=== PATIENT | female | born 1995 | race Two or more races ===

== ENCOUNTER 2025-01-06 08:56 | Outpatient (REF) | payer OTHER, SELFPAY ==
--- OUTSIDE RECORDS SUMMARY | 2025-01-06 09:03 | XMS_ITS | Clinical Summary ---
Author Organization [employer] Address [address] [facility] 7t [place] [address] Care Team Providers Care Food Safety Coordinator Name Role Phone Katelyn Mejia CNP Primary Care Provider [phone] [phone] Allergies Active Allergy Reactions Criticality Noted Date Comments Proanthocyanidin Angioedema 12/29/2024 grapes Medications EPINEPHrine (EpiPen 2-Isidoro) 0.3 MG/0.3ML injection syringe Inject 0.3 mg into the muscle. 06/17/19 22 Active budesonide-for moterol (Symbicort) 160-4.5 MCG/ACT inhalerIndicat ions:Mild persistent asthma, unspecified whether complicated Inhale 2 puffs in the morning and at bedtime. Rinse mouth with water after use to reduce aftertaste and incidence of candidiasis. Do not swallow. 10.2 g 11 12/30/19 25 025 Active albuterol 108 (90 Base) MCG/ACT inhalerIndicat ions:Mild persistent asthma, unspecified whether complicated Inhale 2 puffs every 4 (four) hours if needed for wheezing. 18 g 12/30/19 25 026 Active Albuterol-Minong sonide 90-80 MCG/ACT aerosol 025 Discontinued budesonide-for moterol (Symbicort) 160-4.5 MCG/ACT inhaler 025 Discontinued(Re order (will not trigger notification to Pharmacy)) Active Problems Problem Noted Date Diagnosed Date Class 1 obesity 12/29/2024 Encounters Date Type Department Care Team Description 01/02/2025 Telephone [facility] [address] [place], [place] [id number] Katelyn Mejia CNP chart prep 12/29/2024 1:15 PM EDT Office Visit [facility]ED[facility] [address] [place] [address] Katelyn Mejia CNP Encounter to establish care (Primary Dx); Mild persistent asthma, unspecified whether complicated; Encounter for allergy testing; Pain in both wrists; Pelvic pain; History of ovarian cyst; Venous insufficiency; Pilar cyst of scalp 12/29/2024 Travel 12/29/2024 Telephone [facility] & PED[facility] [address] [place] [address] Gisele Alcantar DE chart prep 12/28/2024 Travel 12/05/2024 Telephone [facility] [address] [place] [address] Anthony Mar MD 11/17/2024 Telephone [facility] [address] [place] [address] Anthony Mar MD from Last 3 Months Immunizations Immunization Administration Dates Next Due DTP 05/20/1999, 6,1994,09/03,1994 HPV, Quadrivalent 02/07/2015, 5,11/11/2009,09/21 Hep B, Unspecified 1994,1994, 995 HiB, unspecified 11/29/1995, 5,1994,07/01 IPV 05/20/1999, 5,1994,07/01 Influenza, IIV3, injectable 03/22/2018,0 01/20/2017,01/25/2016,02/07,04/21/2006 Influenza, seasonal, injecta ble, preservative free 01/20/2019 MMR 05/20/1999,08/18/1995 Meningococcal ACWY, unspecified 08/02/2014,09/21 Tdap 10/14/2015,04/21/2006 Varicella 09/22/2007,09/01/1995 Family History Medical History Relation Name Comments Asthma Father Jin Diabetes Father Jin Kidney disease Father Jin Liver disease Father Jin Stroke Father Jin Anemia Mother Thyroid disease Mother Asthma Sister Delia Relation Name Status Comments Father Jin Alive Mother Sister Delia Alive Social History Tobacco Use Types Packs/Day Years Used Date Smoking Tobacco: Never Smokeless Tobacco: Never Tobacco Cessation:Counseling Given: Not Answered Alcohol Use Standard Drinks/Week Comments Not Currently 0 (1 standard drink = 0.6 oz pur e alcohol) Maybe 1-2 a month Depression Answer Date Recorded Patient Health Questionnaire-9 Score 14 12/29/2024 Patient Health Questionnaire-9 Score 14 12/29/2024 Last PHQ-9: Questionnaire Data Not on file 0 12/29/2024 Housing Stability Answer Date Recorded What is your housing situation today? I have sabiha bradley 12/29/[address] you li ve. Do you have problems with any of the following? None of the above 12/29/2024 Food Insecurity Answer Date Recorded Within the past 12 months, y ou worried that your food would run out before you got money to buy more: Never True 12/29/2024 Within the past 12 months,th e food you bought just didn't last and you didn't have enough money to get more: Never True Transportation Answer Date Recorded In the past 12 months, has l ack of transportation kept you from medical appts, meetings, work or from getting things needed for daily living? No 12/29/2024 Utilities Answer Date Recorded In the past 12 months, has t he electric, gas, oil or water company threatened to shut off services in your home? No 12/29/2024 Depression Answer Date Recorded Patient Health Questionnaire-2 Score 3 12/29/2024 Internet Access Answer Date Recorded Internet Access Q1 Yes 12/29/2024 Internet Access Q2 Not on file 12/29/2024 Comments Unknown Sex and Gender Information Value Date Recorded Sex Assigned at Female 12/28/2024 2:41 PM EDT Legal Sex Female 9:26 AM EDT Gender Identity Female 12/28/2024 2:41 PM EDT Sexual Orientation Straight 01/02/2025 3: 08 PM EDT Last Filed Vital Signs Vital Sign Reading Time Taken Comments Blood Pressure 104/62 12/29/2024 1:28 PM EDT Pulse 72 12/29/2024 1:28 PM EDT Temperature 36.9 C (98.4 F) 12/29/2024 1:28 PM EDT Respiratory Rate 16 12/29/2024 1:28 PM EDT Oxygen Saturation 98% 12/29/2024 1:28 PM EDT Inhaled Oxygen Concentration - - Weight 64.4 kg (142 lb) 12/29/2024 1:28 PM EDT Height 153.7 cm (5' 0.5 ) 12/29/2024 1:28 PM EDT Body Mass Index 27.28 12/29/2024 1:28 PM EDT Plan of Treatment Upcoming Encounters Date Type Department Care Team (Late st Contact Info) Description 01/11/2025 11:30 AM EDT Procedure Visit [facility] MED & PEDS [address] [place], [place] [phone] Katelyn Mejia, SPRING MAKER [address] [place], [place] [phone] Health Maintenance Due Date Last Done Comments Family Planning (PISQ) 2009 Pneumococcal Vaccine: Pediatrics (0 to 5 Years) and At-Risk Patients (6 to 49) Years (1 of 2 - PCV) 2013 Pap Smear 2015 Cervical Cancer Screening 2024 HPV/Cotest 2024 COVID-19 Vaccine ( - season) 2025 Influenza Vaccine (#1) 2025 9, 03/22/2018, 01/20/2017, Additional history exists Depression Monitoring 06/30/2025 12/29/2024, 025 DTaP/Tdap/Td Vaccines (8 - Td or Tdap) 10/13/2025 10/14/2015, 04/21/2006, 05/20/1999, Additional history exists Alcohol/Substance Use Screening 12/29/2025 12/29/2024 Disability Screening 12/29/2025 12/29/2024 HIV Screening 12/29/2025 Postponed from 1994 (Patient Refused) Hepatitis C Screening 12/29/2025 Postpo amanda from 2012 (Patient Refused) SDOH Screening 12/29/2025 12/29/2024 Tobacco Screening 12/29/2025 12/29/2024 Zoster Vaccines (1 of 2) 2044 RSV Patients and Patients Aged 60 years or older (1 - 1-dose 75+ series) 2069 Hepatitis B Vaccines Completed 1994, 1994, 1994 HIB Vaccines Completed 11/29/1995, 10/31, 1994, Additional history exists IPV Vaccines Completed 05/20/1999, 10/31, 1994, Additional history exists Meningococcal Vaccine Aged Out 08/02/2014, 008 No longer eligible based on patient's age to complete this topic HPV Vaccines Completed 02/07/2015, 06/2014, 11/11/2009, Additional history exists Hepatitis A Vaccines Aged Out No long er eligible based on patient's age to complete this topic Meningococcal B Vaccine Aged Out No l onger eligible based on patient's age to complete this topic RSV under 20 months Aged Out No longe r eligible based on patient's age to complete this topic Rotavirus Vaccines Aged Out No longer eligible based on patient's age to complete this topic Insurance [facility] 2 Care Teams Food Safety Coordinator Relationship Specialty Start Date End Date Katelyn Mejia CNP [address] [place] [id number] PCP - General Family Medicine 12/29/24
--- OUTSIDE RECORDS SUMMARY | 2025-01-06 09:03 | XMS_ITS | Clinical Summary ---
Author Organization [facility] Address [address] [place] [address] Care Team Providers Care Plasticator Name Role Phone Unavailable Primary Care Provider Unavailabl e Social History Tobacco Use Types Packs/Day Years Used Date Smoking Tobacco: Never Assessed Comments Unknown Sex and Gender Information Value Date Recorded Sex Assigned at Not on file Legal Sex Female 5:47 AM EST Gender Identity Not on file Sexual Orientation Not on file Plan of Treatment Health Maintenance Due Date Last Done Comments DTaP,Tdap,and Td Vaccines (1 - Tdap) 2013 Hepatitis B Vaccines (1 of 3 - 19+ 3-dose series) 2013 Cervical Cancer Screening: P ap Smear 2015 Depression Screening 05/03/2024 COVID-19 Vaccine ( - 2023-2 5 season) 2025 Influenza Vaccine (#1) 2025 HIB Vaccines Aged Out No longer eligi ble based on patient's age to complete this topic HPV Vaccines Aged Out No longer eligi ble based on patient's age to complete this topic Hepatitis A Vaccines Aged Out No long er eligible based on patient's age to complete this topic IPV Vaccines Aged Out No longer eligi ble based on patient's age to complete this topic MMR Vaccines Aged Out No longer eligi ble based on patient's age to complete this topic Meningococcal ACWY Vaccine Aged Out N o longer eligible based on patient's age to complete this topic Meningococcal B Vaccine Aged Out No l onger eligible based on patient's age to complete this topic Pneumococcal Vaccine: Pediat rics (0 to 5 Years) and At-Risk Patients (6 to 49 Years) Aged Out No longer eligible b ased on patient's age to complete this topic RSV Immunization Patients Un luis 20 months Aged Out No longer eligible b ased on patient's age to complete this topic Varicella Vaccines Aged Out No longer eligible based on patient's age to complete this topic
--- OUTSIDE RECORDS SUMMARY | 2025-01-06 09:03 | XMS_ITS | Encounter Summary ---
Author Organization [employer] Address [address] [facility] 7 [place] [address] Care Team Providers Care Communications Coordinator Name Role Phone Katelyn Mejia CNP Primary Care Provider [phone] Reason for Visit * Reason Onset Date Comments chart prep 01/02/2025 Encounter Details Date Type Department Care Team ([facility] st Contact Info) Description 01/02/2025 Telephone [facility] MED & PEDS [address] [place], [place] [phone] Katelyn Mejia CNP [address] [place] [address] chart prep Social History Tobacco Use Types Packs/Day Years Used Date Smoking Tobacco: Never Smokeless Tobacco: Never Alcohol Use Standard Drinks/Week Comments Not Currently [...] Orientation Straight 01/02/2025 3: 08 PM EDT documented as of this encounter Miscellaneous Notes * Telephone Encounter - Gisele Alcantar [place] - 01/02/2025 2:20 PM EDT Chart Prep Labs: waiting Images: pending appointment Referrals: appointment pending Vaccines due: Flu and PCV20 Screenings: pap smear Overdue care gaps: Not applicable documented in this encounter Plan of Treatment Upcoming Encounters Date Type Department Care Team (Late st Contact Info) Description 01/11/2025 11:30 AM EDT Procedure Visit [facility] P[facility] [address] [place] [address] Katelyn Mejia CNP [address] [place] [address] documented as of this encounter Visit Diagnoses Not on filedocumented in this encounter Additional Health Concerns Assessment Noted Time PHQ-9 Depression Total Score: 14 025 2:12 PM EDT documented as of this encounter Care Teams Communications Coordinator Relationship Specialty Start Date End Date Katelyn Mejia CNP [address] [place] [address] PCP - General Family Medicine 12/29/24 documented as of this encounter
[2025-01-06 09:15] LABS: MANUAL DIFF FLAG NO
[2025-01-06 11:27] LABS: Hematocrit 38.5 % (37.0-47.0); Hemoglobin 12.9 g/dl (12.0-16.0); Imm Gran Abs Auto 0.01 X10*3/uL (0.00-0.03); Imm Gran Pct Auto 0.2 % (0.0-0.4); Lymphocytes Absolute Auto 1.2 X10*3/uL (1.2-4.9); Mean Corpuscular HGB Conc 33.5 g/dl (31.0-35.0); Mean Corpuscular Hemoglobin 29.3 pg (27.0-33.0); Mean Corpuscular Volume 87.5 fL (80.0-98.0); NRBC Abs Auto 0.000 X10*3/uL (0.0-0.012); NRBC Pct Auto 0.0 /100WBC (0.0-0.2); Platelet Count 264 X10*3/uL (160-400); Red Blood Count 4.40 X10*6/uL (4.20-5.50); White Blood Count 4.2 X10*3/uL (4.8-10.8)
[2025-01-06 12:28] LABS: Alanine Aminotransferase 22 U/L (0-31); Albumin Level 4.3 g/dL (3.5-5.0); Alkaline Phosphatase 100 U/L (39-117); Anion Gap 11 (12-20); Aspartate Amino Transferase 26 U/L (5-31); Blood Urea Nitrogen 11 mg/dL (9-16); Calcium 9.1 mg/dL (8.4-10.2); Carbon Dioxide 26 mmol/L (22-29); Chloride 108 mmol/L (96-108); Cholesterol 144 mg/dL (<200); Estimated Glomerular Filt Rate > 60; HDL Cholesterol 46 mg/dL (>40); Potassium 4.0 mmol/L (3.3-5.1); Sodium 141 mmol/L (135-145); Total Protein 6.9 g/dL (6.5-8.0); Triglycerides 40 mg/dL (<150)
== END 2025-01-06 08:57 | disposition home or self-care (01) ==
LOC: HO.LAB 08:56
DX: Z76.89 Persons encountering health services in other specified circumstances (principal)
CPT/HCPCS: 36415; 80053; 80061; 84443; 85025

== ENCOUNTER 2025-01-11 18:08 | Outpatient (REF) | payer OTHER, SELFPAY ==
--- OUTSIDE RECORDS SUMMARY | 2025-01-11 11:30 | XMS_ITS | Encounter Summary ---
Author Organization [employer] Address [address] [place] [address] 7 [place] [address] Care Team Providers Care Meat Cutter Name Role Phone Katelyn Mejia CNP Primary Care Provider [phone] [phone] Reason for Visit * Reason Comments Gynecologic Exam Encounter Details Date Type Department Care Team (Latest Contact Info) Description 01/11/2025 11:30 AM EDT Procedure Visit [facility] MED & PEDS [address] [place], [place] [phone] Katelyn Mejia CNP [address] [place] [address] Encounter for cervical Pap smear with pelvic exam (Primary Dx); Healthcare maintenance Social History Tobacco Use Types Packs/Day Years [...] Q2 Not on file 12/29/2024 Comments Unknown Intention Date Recorded No desire to become (finding) 0 01/11/2025 Sex and Gender Information Value Date Recorded Sex Assigned at Female 12/28/2024 2:41 PM EDT Legal Sex Female 9:26 AM EDT Gender Identity Female 12/28/2024 2:41 PM EDT Sexual Orientation Straight 01/02/2025 3: 08 PM EDT documented as of this encounter Last Filed Vital Signs Vital Sign Reading Time Taken Comments Blood Pressure 100/64 01/11/2025 11:39 AM EDT Pulse 76 01/11/2025 11:39 AM EDT Temperature 36.2 C (97.1 F) 01/11/2025 11:39 AM EDT Respiratory Rate 16 01/11/2025 11:39 AM EDT Oxygen Saturation 98% 01/11/2025 11:39 AM EDT Inhaled Oxygen Concentration - - Weight 66.2 kg (146 lb) 01/11/2025 11:39 AM EDT Height 153.7 cm (5' 0.5 ) 01/11/2025 11:39 AM ED T Body Mass Index 28.04 01/11/2025 11:39 AM EDT documented in this encounter Progress Notes * Katelyn Mejia CNP - 01/11/2025 11:30 AM EDT Subjective Patient ID: Mery Taylor is a 29 y.o. female who presents for routine [employer] exam. She denies any urinary, vaginal, or breast concerns today. Hx of ovarian cysts, pelvic US pending. Last pap 07/2022, LSIL HPV Neg, per pt she had colpo, unsure of results. Periods regular occurring every month, 5-6 days, moderate bleeding Sexual activity: has monogamous AMAB partner, would lik gc/ct testing today Contraception: none Review of Systems Genitourinary: Negative for pelvic pain and vaginal discharge. Objective Vitals: 01/11/25 1139 BP: 100/64 Pulse: 76 Resp: 16 Temp: 97.1 ??F (36.2 ??C) SpO2: 98% Physical Exam Constitutional: Appearance: Normal appearance. HENT: Head: Normocephalic and atraumatic. Chest: Comments: Breast exam declined Genitourinary: General: Normal vulva. Labia: Right: No rash, tenderness, lesion or injury. Left: No rash, tenderness, lesion or injury. Urethra: No prolapse, urethral pain, urethral swelling or urethral lesion. Vagina: Normal. Cervix: Normal. No cervical motion tenderness, discharge, friability, lesion, erythema, cervical bleeding or eversion. Uterus: Normal. Not deviated, not enlarged, not fixed, not tender and no uterine prolapse. Adnexa: Right adnexa normal and left adnexa normal. Right: No mass, tenderness or fullness. Left: No mass, tenderness or fullness. Rectum: Normal. Neurological: General: No focal deficit present. Mental Status: She is alert and oriented to person, place, and time. Psychiatric: Mood and Affect: Mood normal. Behavior: Behavior normal. Assessment/Plan Problem List Items Addressed This Visit None Visit Diagnoses Encounter for cervical Pap smear with pelvic exam - Primary Relevant Orders Pap Smear Hemoglobin A1c STI testing add on (NG, CT, Trich) Normal pelvic and speculum exam today, pap obtained with STI add on. If normal, repeat in 1 year. Pt to f/u to have pelvic US completed for hx of ovarian cysts. documented in this encounter Plan of Treatment Scheduled Orders Name Type Priority Associated Diagnoses Orde r Schedule Pap Smear Pathology and Cytology Routine Encounter for cervical Pap smear with pelvic exam Ordered: 01/11/2025 Hemoglobin A1c Lab Routine Encounter for cervical Pap smear with pelvic exam Healthcare maintenance Expected: 01/11/2025 (Approximate), Expires: 01/11/2026 STI testing add on (NG, CT, Trich) Pathology and Cytology Routine Encounter for cervical Pap smear with pelvic exam Ordered: 01/11/2025 documented as of this encounter Visit Diagnoses Diagnosis Encounter for cervical Pap smear with pelvic exam- Primary Healthcare maintenance documented in this encounter Additional Health Concerns Assessment Noted Time PHQ-9 Depression Total Score: 14 025 2:12 PM EDT documented as of this encounter Care Teams Meat Cutter Relationship Specialty Start Date End Date Katelyn Mejia CNP [address] [place] [address] PCP - General Family Medicine 12/29/24 documented as of this encounter
--- OUTSIDE RECORDS SUMMARY | 2025-01-11 19:03 | XMS_ITS | Encounter Summary ---
Author Organization [employer] Address [address] [facility] [address] [place] [address] Care Team Providers Care Prevention Specialist Name Role Phone Katelyn Mejia MATILDE Primary Care Provider [phone] [phone] Encounter Details Date Type Department Care Team (Latest Contact Info) Description 01/11/2025 Travel Social History Tobacco Use Types Packs/Day Years [...] PM EDT documented as of this encounter Plan of Treatment Not on file documented as of this encounter Visit Diagnoses Not on filedocumented in this encounter Additional Health Concerns Assessment Noted Time PHQ-9 Depression Total Score: 14 025 2:12 PM EDT documented as of this encounter Care Teams Prevention Specialist Relationship Specialty Start Date End Date Katelyn Mejia CNP [address] [place] [id number] PCP - General Family Medicine 12/29/24 documented as of this encounter
--- OUTSIDE RECORDS SUMMARY | 2025-01-11 19:03 | XMS_ITS | Clinical Summary ---
Author Organization [employer] Address [address] [facility] [address] [place] [address] Care Team Providers Care Cloth Weaver Name Role Phone Katelyn Mejia MATILDE Primary Care Provider [phone] Allergies Active Allergy Reactions Criticality Noted Date Comments Proanthocyanidin Angioedema 12/29/2024 grapes Medications * This document contains information received from the source organization and may not represent a complete record from that organization. EPINEPHrine (EpiPen 2-Isidoro) 0.3 MG/0.3ML injection syringe [...] wheezing. 18 g 12/30/19 25 026 Active Albuterol-[place] sonide 90-80 MCG/ACT aerosol 025 Discontinued budesonide-for moterol (Symbicort) 160-4.5 MCG/ACT inhaler 025 Discontinued(Re order (will not trigger notification to Pharmacy)) Active Problems Problem Noted Date Diagnosed Date Class 1 obesity 12/29/2024 Encounters * This document contains information received from the source organization and may not represent a complete record from that organization. Date Type Department Care Team Description 01/11/2025 11:30 AM EDT Procedure Visit [facility] [address] [place] [address] Katelyn Mejia CNP Encounter for cervical Pap smear with pelvic exam (Primary Dx); Healthcare maintenance 01/11/2025 Orders Only [facility] [address] [place] [address] ProviderDarrell MD 01/11/2025 Travel 01/02/2025 Telephone [facility] [address] [place] [address] Katelyn Mejia CNP chart prep 12/29/2024 1:15 PM EDT Office Visit [facility] [address] [place] [address] Katelyn Mejia CNP Encounter to establish care (Primary Dx); Mild persistent asthma, unspecified whether complicated; Encounter for allergy testing; Pain in both wrists; Pelvic pain; History of ovarian cyst; Venous insufficiency; Pilar cyst of scalp 12/29/2024 Travel 12/29/2024 Telephone [facility] [address] [place] [address] Gisele Alcantar MA chart prep 12/28/2024 Travel 12/05/[address] [facility] [address] [place] [phone] Anthony Mar MD 11/17/[address] [facility] [address] [place] [phone] Anthony Mar MD from Last 3 Months [...] Mass Index 28.04 01/11/2025 11:39 AM EDT Plan of Treatment Health Maintenance Due Date Last Done Comments Pneumococcal Vaccine: Pediatrics (0 to 5 Years) and At-Risk Patients (6 to 49) Years (1 of 2 - PCV) 2013 Pap Smear 2015 Cervical Cancer Screening 2024 HPV/Cotest 2024 COVID-19 Vaccine ( season) 2025 Influenza Vaccine (#1) 2025 9, [...] Screening 12/29/2025 12/29/2024 Tobacco Screening 12/29/2025 12/29/2024 Family Planning (PISQ) 01/11/2026 01/11/2025 Zoster Vaccines (1 of 2) 2044 RSV [...] on patient's age to complete this topic Procedures Procedure Name Priority Date/Time Associated Diagnosis Comments CBC WITH AUTO DIFFERENTIAL Routine 01/06/2025 9:13 AM EDT Encounter to establish care COMPREHENSIVE METABOLIC PANEL Routine 01/06/2025 9:13 AM EDT Encounter to establish care TSH W/REFLEX TO FT4 Routine 01/06/2025 9 :13 AM EDT Encounter to establish care LIPID PANEL, STANDARD Routine 01/06/2025 9:13 AM EDT Encounter to establish care from Last 3 Months Results * TSH W/Reflex to FT4 (01/06/2025 9:13 AM EDT) Pathologist [facility] TSH reflex Free T4 0.88 0.32 - 4.0 uIU/mL [facility] Blood Venous blood specimen / Unknown 01/06/2025 9:13 AM EDT 01/06/2025 9:13 AM EDT [facility] LAB BLOOD ORDERABLES Madelaine l Result [facility] [address] [place] [address] [phone] * (ABNORMAL) CBC auto differential (01/06/2025 9:13 AM EDT) [facility] White Blood Count 4.2(L) 4.8 - 10.8 X10*3/uL [facility] Red Blood Count 4.40 4.20 - 5.50 X10*6/uL [facility] Hemoglobin 12.9 12.0 - 16.0 g/dl [facility] Hematocrit 38.5 37.0 - 47.0 % [facility] Mean Corpuscular Volume 87.5 80.0 - 98.0 fL [facility] Mean Corpuscular Hemoglobin 29.3 27.0 - 33.0 pg [facility] Mean Corpuscular HGB Conc 33.5 31.0 - 35.0 g/dl [facility] Red Cell Distribution Width 12.5 11.0 - 16.0 % [facility] Platelet Count 264 160 - 400 X10*3/uL [facility] Mean Platelet Volume 10.9 9.4 - 12.3 fL [facility] Neutrophils Percent Auto 57.8 45 - 73 % [facility] Imm Gran Pct Auto 0.2 0.0 - 0.4 % [facility] Lymphocytes Percent Auto 28.8 20 - 40 % [facility] Monocytes Percent Auto 7.7 2 - 11 % [facility] Eosinophils Percent Auto 4.8(H) 0 - 4 % [facility] Basophils Percent Auto 0.7 0 - 2 % [facility] NRBC Pct Auto 0.0 0.0 - 0.2 /100WBC [facility] Neutrophils Absolute Auto 2.4 2.0 - 8.3 x10*3/uL [facility] Imm Gran Abs Auto 0.01 0.00 - 0.03 X10*3/uL [facility] Lymphocytes Absolute Auto 1.2 1.2 - 4.9 X10*3/uL [facility] Monocytes Absolute Auto 0.3 0.1 - 1.2 X10*3/uL [facility] Eosinophils Absolute Auto 0.2 0.0 - 0.4 X10*3/uL [facility] Basophils Absolute Auto 0.0 0.0 - 0.2 X10*3/uL [facility] NRBC Abs Auto 0.000 0.0 - 0.012 X10*3/uL [facility] Blood Venous blood specimen / Unknown 01/06/2025 9:13 AM EDT 01/06/2025 9:13 AM EDT [facility] LAB BLOOD ORDERABLES Madelaine l Result [facility] [address] [place] [phone] * Lipid Panel, Standard (01/06/2025 9:13 AM EDT) Triglycerides 40 <150 mg/dL [facility] Comment:Desirable Triglyceri de: less than 150 mg/dLBorderline High Triglyceride 150-199 mg/dLHigh Triglyceride: 200-499 mg/dLVery High Triglyceride: greater than or equal to 5OO mg/dL Cholesterol 144 <200 mg/dL [facility] Comment:Desirable Cholestero l: less than 200 mg/dLBorderline High Cholesterol: 200-239 mg/dLHigh Cholesterol: greater than 239 mg/dL LDL Cholesterol Calculated 90 <100 mg/dL [facility] Comment:Desirable LDL: less than 100 mg/dLNear Optimal/Above Optimal LDL: 110- 129 mg/dLBorderline High LDL: 130-159 mg/dLHigh LDL: 160-189 mg/dLVery High LDL: greater than or equal to 190 mg/dL HDL Cholesterol 46 >40 mg/dL [facility] Comment:Desirable HDL: great er than 40 mg/dL Note: This HDL assay may give artificially low results in patients with liver disease. Blood Venous blood specimen / Unknown 01/06/2025 9:13 AM EDT 01/06/2025 9:13 AM EDT [facility] LAB BLOOD ORDERABLES Madelaine l Result [facility] [address] [place], [place] [phone] * (ABNORMAL) Comprehensive Metabolic Panel (01/06/2025 9:13 AM EDT) Sodium 141 135 - 145 mmol/L [facility] Potassium 4.0 3.3 - 5.1 mmol/L [facility] Chloride 108 96 - 108 mmol/L [facility] Carbon Dioxide 26 22 - 29 mmol/L [facility] Anion Gap 11(L) 12 - 20 [facility] Urea Nitrogen (BUN) 11 9 - 16 mg/dL [facility] Creatinine, Serum 0.79 0.5 - 1.4 mg/dL [facility] Estimated Glomerular Filt Rate >60 [facility] Comment:Chronic Kidney Disea se: Estimated GFR < 60 mL/min/[id number] Kidney Disease: Estimated GFR < 15 mL/min/1.73m2 Glucose 80 60 - 115 mg/dL [facility] Calcium 9.1 8.4 - 10.2 mg/dL [facility] Bilirubin, Total 0.5 0.0 - 1.0 mg/dL [facility] Aspartate Amino Transferase 26 5 - 31 U/L [facility] Alanine Aminotransferase 22 0 - 31 U/L [facility] Total Protein 6.9 6.5 - 8.0 g/dL [facility] Albumin Level 4.3 3.5 - 5.0 g/dL [facility] Alkaline Phosphatase 100 39 - 117 U/L [facility] Blood Venous blood specimen / Unknown 01/06/2025 9:13 AM EDT 01/06/2025 9:13 AM EDT us Katelyn Mejia [employer] LAB BLOOD ORDERABLES Madelaine l Result [facility] [address] [place] [phone] from Last 3 Months Insurance [facility] 2 Care Teams Cloth Weaver Relationship Specialty Start Date End Date Katelyn Mejia CNP [address] [place] [address] PCP - General Family Medicine 12/29/24
--- OUTSIDE RECORDS SUMMARY | 2025-01-11 19:03 | XMS_ITS | Encounter Summary ---
Author Organization [employer] Address [address] [facility] [address] [place] [address] Care Team Providers Care Nut Sorter Name Role Phone RobertoUlysseslarisaadrian MATILDE Primary Care Provider [phone] Encounter Details Date Type Department Care Team ([facility] st Contact Info) Description 01/11/2025 Orders Only [facility] [address] [place], [place] [phone] ProviderDarrell MD Social History Tobacco Use Types Packs/Day Years [...] is your housing situation today? I have sabihanela bradley 12/29/[address] you [...] the past 12 months, has t he [employer], gas, oil or water company threatened to [...] on file documented as of this encounter Procedures Procedure Name Priority Date/Time Associated Diagnosis Comments CYTOLOGY, CONVENTIONAL PAP SMEAR, 1 SLIDE Routine 07/20/2022 3:31 PM EDT documented in this encounter Results * Cytology, Conventional Pap Smear, 1 Slide (07/20/2022 3:31 PM EDT) us Historical Provider LAB CYTOLOGY ORDERABLES F inal Result documented in this encounter Visit Diagnoses Not on filedocumented in this encounter Additional Health Concerns Assessment Noted Time PHQ-9 Depression Total Score: 14 025 2:12 PM EDT documented as of this encounter Care Teams Nut Sorter Relationship Specialty Start Date End Date Katelyn Mejia CNP [address] [place] [phone] PCP - General Family Medicine 12/29/24 documented as of this encounter
[2025-01-14 17:32] LABS: Trichomonas (NAAT) NOT DETECTED (NOT DETECTED)
[2025-01-14 17:43] LABS: C. trachomatis RNA TMA NOT DETECTED (NOT DETECTED); N. gonorrhoeae RNA TMA NOT DETECTED (NOT DETECTED)
== END 2025-01-11 18:09 | disposition home or self-care (01) ==
LOC: HO.HHCLNP 18:08
DX: Z01.419 Encounter for gynecological examination (general) (routine) without abnormal findings (principal)
CPT/HCPCS: 87491; 87591; 87661; 88175

== ENCOUNTER 2025-02-13 08:54 | Outpatient (REF) | payer OTHER, SELFPAY ==
--- NOTE | 2025-02-13 | EMG_ITS ---
Chief complaint: Pain in both wrist Reason for referral: M25.531 Evaluate for Carpal tunnel syndrome, ulnar neuropathy, radiculopathy Referred by: Katelyn Mejia CNP Procedure done: Bilateral upper extremity NCS / EMG Bilateral median and ulnar motor studies were performed. Bilateral median and ulnar mixed sensory studies, radial sensory, and median lateral antecubital brachial sensory studies were performed. EMG needle examination was performed. Left ulnar motor studies revealed slowing of conduction velocity across elbow. Left radial sensory response was absent. Impression: 1. Mild left ulnar neuropathy across elbow 2. Left radial sensory neuropathy. Otherwise no significant abnormality noted. MTDD
--- OUTSIDE RECORDS SUMMARY | 2025-02-13 09:25 | XMS_ITS | Clinical Summary ---
Author Organization [employer] [facility] it[facility] Address [address] [place] [address] Care Team Providers Care Utility Mechanic Name Role Phone Unavailable Primary Care Provider [...] Cervical Cancer Screening: P ap Smear 2015 HPV Vaccines (1 - 3-dose SCD M series) 2021 Depression Screening 05/03/2024 COVID-19 Vaccine ( - 2023-2 5 season) 2025 Influenza Vaccine (#1) 2025 RSV Immunization Adult Patie nts (1 - 1-dose 75+ series) 2069 HIB Vaccines Aged Out No longer eligi [...]
--- OUTSIDE RECORDS SUMMARY | 2025-02-13 09:25 | XMS_ITS | Clinical Summary ---
Author Organization [employer] Address [address] [facility] [address] [place] [address] Care Team Providers Care Liver Trimmer Name Role Phone Katelyn Mejia MATILDE Primary Care Provider [phone] Allergies Active Allergy Reactions Criticality Noted Date Comments Proanthocyanidin Angioedema 12/29/2024 grapes Medications * This document contains information received from the source organization and may not represent a complete record from that organization. EPINEPHrine (EpiPen 2-Isidoro) 0.3 MG/0.3ML injection syringe Inject 0.3 mg into the muscle. 2 Active budesonide-formo terol (Symbicort) 160-4.5 MCG/ACT inhalerIndicatio ns:Mild persistent asthma, unspecified whether complicated Inhale 2 puffs in the morning and at bedtime. Rinse mouth with water after use to reduce aftertaste and incidence of candidiasis. Do not swallow. 10.2 g 11 5 Active albuterol 108 (90 Base) MCG/ACT inhalerIndicatio ns:Mild persistent asthma, unspecified whether complicated Inhale 2 puffs every 4 (four) hours if needed for wheezing. 18 g 5 12/30/19 26 Active Active Problems Problem Noted Date Diagnosed Date Use of cannabinoid edibles 01/22/2025 Depression, unspecified 01/15/2025 NITA (generalized anxiety disorder) 01/15/2025 Class 1 obesity 12/29/2024 Encounters * This document contains information received from the source organization and may not represent a complete record from that organization. Date Type Department Care Team Description 01/17/2025 Results Follow-Up [facility] [address] [place], [place] [address] [phone] Katelyn Mejia CNP Pap Smear, STI testing add on (NG, CT, Trich) 01/11/2025 11:30 AM EDT Procedure Visit [facility] [address] [facility] [place] [facility] [place] [address] Katelyn Mejia CNP Encounter for cervical Pap smear with pelvic exam (Primary Dx); Healthcare maintenance 01/11/2025 Orders Only [facility] [address] [place] [address] ProviderDarrell MD 01/11/2025 Travel 01/02/2025 Telephone [facility] [address] [place] [address] Katelyn Mejia CNP chart prep 12/29/2024 1:15 PM EDT Office Visit [facility] [address] [place] [address] Katelyn Mejia CNP Encounter to establish care (Primary Dx); Mild persistent asthma, unspecified whether complicated; Encounter for allergy testing; Pain in both wrists; Pelvic pain; History of ovarian cyst; Venous insufficiency; Pilar cyst of scalp 12/29/2024 Travel 12/29/2024 Telephone [facility] [address] [place] [address] Gisele Alcantar MA chart prep 12/28/2024 Travel 12/05/[address] [address] Anthony Mar MD 11/17/2024 Telephone [facility] MED[facility] [address] [place] [phone] Anthony Mar MD from Last 3 Months [...] Answer Date Recorded Patient Health Questionnaire-9 Score 6 01/11/2025 Patient Health Questionnaire-9 Score 6 01/11/2025 Last PHQ-9: Questionnaire Data Not on file 0 01/11/2025 Housing Stability Answer Date Recorded What is [...] Answer Date Recorded Patient Health Questionnaire-2 Score 2 01/11/2025 Internet Access Answer Date Recorded Internet Access [...] Years (1 of 2 - PCV) 2013 HPV/Cotest 2024 COVID-19 Vaccine (1 - season) 2025 Influenza Vaccine (#1) 2025 9, 03/22/2018, 01/20/2017, Additional history exists DTaP/Tdap/Td Vaccines (8 - Td or Tdap) 10/13/2025 10/14/2015, 04/21/2006, 05/20/1999, Additional history exists Alcohol/Substance Use Screening 12/29/2025 12/29/2024 Disability Screening 12/29/2025 12/29/2024 HIV Screening 12/29/2025 Postponed from 1994 (Patient Refused) Hepatitis C Screening 12/29/2025 Postpo amanda from 2012 (Patient Refused) SDOH Screening 12/29/2025 12/29/2024 Tobacco Screening 12/29/2025 12/29/2024 Depression Screening 01/11/2026 01/11/2025, 01/12/20 25 Family Planning (PISQ) 01/11/2026 01/11/2025 Cervical Cancer Screening 01/12/2028 Pap Smear 01/12/2028 01/11/2025 Zoster Vaccines (1 of 2) 2044 [...] Procedure Name Priority Date/Time Associated Diagnosis Comments CHLAMYDIA/N. GONORRHOEAE AND T. VAGINALIS RNA, QUAL,TMA Routine 01/11/2025 12:06 PM EDT Encounter for cervical Pap smear with pelvic exam PAP SMEAR Routine 01/11/2025 12:06 PM EDT Encounter for cervical Pap smear with pelvic exam CBC WITH AUTO DIFFERENTIAL Routine 01/06/2025 9:13 AM EDT Encounter to establish care COMPREHENSIVE METABOLIC PANEL Routine 01/06/2025 9:13 AM EDT Encounter to establish care TSH W/REFLEX TO FT4 Routine 01/06/2025 9 :13 AM EDT Encounter to establish care LIPID PANEL, STANDARD Routine 01/06/2025 9:13 AM EDT Encounter to establish care from Last 3 Months Results * STI testing add on (NG, CT, Trich) (01/11/2025 12:06 PM EDT) Trichomonas (NAAT) NOT DETECTED NOT DETECTED [facility] Comment:The analytical perfo rmance characteristics of thisassay have been determined by [facility] [facility]. Themodifications have not been cleared or approved bythe FDA. This assay has been validated pursuant to theCLIA regulations and is used for clinical purposes.For additional information, please refer tohttp://education.Pitchbrite/faq/Trichomonastma(This link is being provided for information/educational purposes only.)THIS TEST WAS PERFORMED AT:[facility] [place] [phone] MORRIS MD CTNG Ref Lab NOT DETECTED NOT DETECTED [facility] NG Ref Lab NOT DETECTED NOT DETECTED [facility] ThinPrep vial Cervix uteri structure / Unknown 01/11/2025 12:06 PM EDT 01/12/2025 7:49 AM EDT Narrative [facility] - 01/14/2025 5:43 PM EDT Collection Date: [id number] by: GISELE COLON-COLONDelma: Cervix [facility] LAB CYTOLOGY ORDERABLES F inal Result [facility] [address] [place] [address] [phone] * Pap Smear (01/11/2025 12:06 PM EDT) Swab 01/11/2025 12:0 6 PM EDT 01/12/2025 7:49 AM EDT [facility] - 01/17/2025 10:56 AM EDT ----- ------- Name: Mery Taylor Age/Sex: 29/F : 1995 Unit#: [id number] Attend Dr: Katelyn Mejia DISPATCH MANAGER Re01/11/25 Status: [facility] Disch[facility] ----- ------- SPEC : [id number] RECD: 01/12/25 STATUS: DORITA LUDIN NUM: [id number] ZACHARY: 01/11/25-[address] [facility] [address]: Katelyn Mejia DISPATCH MANAGER ENTERED: 01/12/25 SP TYPE: Pap Smr [facility] DR: ORDERED: Pap Smear Interpretation Satisfactory for evaluation. Negative for intraepithelial lesion or malignancy. No endocervical cells seen. Clinical Information LMP: Unknown date Previous PAP test: 07/2022, LSIL, HPV negative, COLPO - results unknown Other history: Encounter for cervical Pap smear with pelvic exam Material Received ThinPrep-Vaginal/Cervical PAP Disclaimer As of February 23, 2024, the technical services to include automated prescreening performed by the ThinPrep Imaging System, PAP screening and HPV testing will be performed at [facility] (CLIA #[id number]), [address] [place] [address]. Testing for HPV was performed using the [employer] ORALIA 6800 system. The presence of HPV in the female genital tract is associated with a number of diseases, including cervical carcinoma. The HPV DNA high risk pool tests for HPV 31, 33, 35, 39, 45, 51, 52, 56, 58, 59, 66 and 68. The testing for HPV 16 and 18 genotypes has also been performed. A positive result indicates detection of nucleic acid sequences from one or more subtypes, whereas a negative result indicates such sequences were not detected. All professional services are performed by [facility] ([address] [place] [address]; ; CLIA #[id number]). The PAP Test is a screening procedure with the inherent possibility of both false negative and false positive results. Results should be interpreted in the context of historic and current clinical findings. Reliability of the PAP Test is enhanced by performing the test on a regular repetitive basis. ----- ------- Signed (signature on file) BECCA Aguilar (ASCP) 01/17/25 1056 ----- ------- END OF REPORT Katelyn Mejia [facility] CYTOLOGY ORDERABLES F inal Result [facility] [address] [place], [place] [phone] * TSH W/Reflex to FT4 (01/06/2025 9:13 AM EDT) TSH reflex Free T4 0.88 0.32 - 4.0 uIU/mL [facility] Blood Venous blood specimen / Unknown 01/06/2025 9:13 AM EDT 01/06/2025 9:13 AM EDT [facility] LAB BLOOD ORDERABLES Madelaine l Result [facility] [address], [place] [phone] * (ABNORMAL) CBC auto differential (01/06/2025 9:13 AM EDT) White Blood Count 4.2(L) 4.8 - 10.8 X10*3/uL [facility] Red Blood Count 4.40 4.20 - 5.50 X10*6/uL [facility] Hemoglobin 12.9 12.0 - 16.0 g/dl [facility] Hematocrit 38.5 37.0 - 47.0 % [facility] Mean Corpuscular Volume 87.5 80.0 - 98.0 fL [facility] Mean Corpuscular Hemoglobin 29.3 27.0 - 33.0 pg [facility] Mean Corpuscular HGB Conc 33.5 31.0 - 35.0 g/dl [facility] Red Cell Distribution Width 12.5 11.0 - 16.0 % [facility] Platelet Count 264 160 - 400 X10*3/uL [facility] Mean Platelet Volume 10.9 9.4 - 12.3 fL [facility] Neutrophils Percent Auto 57.8 45 - 73 % [facility] Imm Gran Pct Auto 0.2 0.0 - 0.4 % [facility] Lymphocytes Percent Auto 28.8 20 - 40 % [facility] Monocytes Percent Auto 7.7 2 - 11 % [facility] Eosinophils Percent Auto 4.8(H) 0 - 4 % [facility] Basophils Percent Auto 0.7 0 - 2 % [facility] NRBC Pct Auto 0.0 0.0 - 0.2 /100WBC [facility] Neutrophils Absolute Auto 2.4 2.0 - 8.3 x10*3/uL [facility] Imm Gran Abs Auto 0.01 0.00 - 0.03 X10*3/uL [facility] Lymphocytes Absolute Auto 1.2 1.2 - 4.9 X10*3/uL [facility] Monocytes Absolute Auto 0.3 0.1 - 1.2 X10*3/uL [facility] Eosinophils Absolute Auto 0.2 0.0 - 0.4 X10*3/uL [facility] Basophils Absolute Auto 0.0 0.0 - 0.2 X10*3/uL [facility] NRBC Abs Auto 0.000 0.0 - 0.012 X10*3/uL [facility] Blood Venous blood specimen / Unknown 01/06/2025 9:13 AM EDT 01/06/2025 9:13 AM EDT Katelyn Mejia [facility] BLOOD ORDERABLES Madelaine l Result [facility] [address] [place] [phone] * Lipid Panel, Standard (01/06/2025 9:13 AM EDT) Triglycerides 40 <150 mg/dL [facility] Comment:Desirable Triglyceri de: less than 150 mg/dLBorderline High Triglyceride 150-199 mg/dLHigh Triglyceride: 200-499 mg/dLVery High Triglyceride: greater than or equal to 5OO mg/dL Cholesterol 144 <200 mg/dL [facility] Comment:Desirable Cholestero l: less than 200 mg/dLBorderline High Cholesterol: 200-239 mg/dLHigh Cholesterol: greater than 239 mg/dL LDL Cholesterol Calculated 90 <100 mg/dL [facility] Comment:Desirable LDL: less than 100 mg/dLNear Optimal/Above Optimal LDL: 110- 129 mg/dLBorderline High LDL: 130-159 mg/dLHigh LDL: 160-189 mg/dLVery High LDL: greater than or equal to 190 mg/dL HDL Cholesterol 46 >40 mg/dL [facility] Comment:Desirable HDL: great er than 40 mg/dL Note: This HDL assay may give artificially low results in patients with liver disease. Blood Venous blood specimen / Unknown 01/06/2025 9:13 AM EDT 01/06/2025 9:13 AM EDT [facility] LAB BLOOD ORDERABLES Madelaine l Result [facility] [address] [place] [address] [phone] * (ABNORMAL) Comprehensive Metabolic Panel (01/06/2025 9:13 AM EDT) Sodium 141 135 - 145 mmol/L [facility] Potassium 4.0 3.3 - 5.1 mmol/L [facility] Chloride 108 96 - 108 mmol/L [facility] Carbon Dioxide 26 22 - 29 mmol/L [facility] Anion Gap 11(L) 12 - 20 [facility] Urea Nitrogen (BUN) 11 9 - 16 mg/dL [facility] Creatinine, Serum 0.79 0.5 - 1.4 mg/dL [facility] Estimated Glomerular Filt Rate >60 [facility] Comment:Chronic Kidney Disea se: Estimated GFR < 60 mL/min/1.22u4Bpivff Kidney Disease: Estimated GFR < 15 mL/min/1.73m2 Glucose 80 60 - 115 mg/dL [facility] Calcium 9.1 8.4 - 10.2 mg/dL [facility] Bilirubin, Total 0.5 0.0 - 1.0 mg/dL [facility] Aspartate Amino Transferase 26 5 - 31 U/L [facility] Alanine Aminotransferase 22 0 - 31 U/L [facility] Total Protein 6.9 6.5 - 8.0 g/dL [facility] Albumin Level 4.3 3.5 - 5.0 g/dL [facility] Alkaline Phosphatase 100 39 - 117 U/L [facility] Blood Venous blood specimen / Unknown 01/06/2025 9:13 AM EDT 01/06/2025 9:13 AM EDT us Katelyn Mejia CNP LAB BLOOD ORDERABLES Madelaine l Result [facility] [address] [place] [address] [phone] from Last 3 Months Insurance [facility] 2 Care Teams Liver Trimmer Relationship Specialty Start Date End Date Katelyn Mejia CNP PCP - General Family Medicine 12/29/24
--- OUTSIDE RECORDS SUMMARY | 2025-02-13 09:25 | XMS_ITS | Encounter Summary ---
Author Organization [email or web address] Address [address] [facility] [address] [place] [address] Care Team Providers Care Nurse Researcher Name Role Phone RobertoUlysseslarisaadrian MATILDE Primary Care Provider [phone] Encounter Details Date Type Department Care Team ([facility] st Contact Info) Description 01/11/2025 Orders Only [facility] [address] [place], [place] [phone] ProviderDarrell MD Social History Tobacco Use Types [...] the past 12 months, has t he [employer], gas, oil or water company threatened to [...] PM EDT documented as of this encounter Functional Status * Over the past 2 weeks, how often have you been bothered by any of the following problems? Question Answer Date of Assessment Author Patient Health Questionnaire-2 Score 2 01/11/2025 10:30 AM EDT Liborio Johns LICSW * Little interest or pleasure in doing things Answer Date of Assessment Author Several days 01/11/2025 10:30 AM EDT Nazia Johns LICSW * Feeling down, depressed, or hopeless Answer Date of Assessment Author Several days 01/11/2025 10:30 AM EDT Nazia Johns LICSW * Trouble falling or staying asleep, or sleeping too much Answer Date of Assessment Author Several days 01/11/2025 10:30 AM EDT Nazia Johns LICSW * Feeling tired or having little energy Answer Date of Assessment Author Several days 01/11/2025 10:30 AM EDT Nazia Johns LICSW * Poor appetite or overeating Answer Date of Assessment Author Several days 01/11/2025 10:30 AM EDT Nazia Johns LICSW * Feeling bad about yourself - or that you are a failure or have let yourself or your family down Answer Date of Assessment Author Not at all 01/11/2025 10:30 AM EDT Nazia Johns LICSW * Trouble concentrating on things, such as reading the newspaper or watching television Answer Date of Assessment Author Not at all 01/11/2025 10:30 AM EDT Nazia Johns LICSW * Moving or speaking so slowly that other people could have noticed? Or the opposite - being so fidgety or restless that you have been moving around a lot more than usual. Answer Date of Assessment Author Not at all 01/11/2025 10:30 AM EDT Nazia Johns LICSW * Thoughts that you would be better off or hurting yourself in some way Answer Date of Assessment Author Several days 01/11/2025 10:30 AM EDT Nazia Johns LICSW * Patient Health Questionnaire-9 Score Answer Date of Assessment Author 6 01/11/2025 10:30 AM EDT Nazia Johns LICSW * How difficult have these problems made it for you to do your work, take care of things at home, or get along with other people? Answer Date of Assessment Author Somewhat difficult 01/11/2025 10:30 AM EDT Nazia Wilder LICSW * Over the last 2 weeks, how often have you been bothered by any of the following problems? Question Answer Date of Assessment Author Feeling nervous, anxious, or on edge 2 01/11/2025 10:30 AM EDT Shawn Johns LICSW Not being able to stop or control worrying 2 01/11/2025 10:30 AM EDT Shawn Johns LICSW Worrying too much about different things 2 01/11/2025 10:30 AM EDT Shawn Johns LICSW Trouble relaxing 2 01/11/2025 10:30 AM EDT Nazia Johns LICSW Being so restless that it is hard to sit still 2 01/11/2025 10:30 AM EDT Shawn Johns LICSW Becoming easily annoyed or irritable 2 01/11/2025 10:30 AM EDT Shawn Johns LICSW Feeling afraid as if something awful might happen 2 01/11/2025 10:30 AM EDT Nazia Leger LICSW NITA-7 Total Score 14 01/11/2025 10:30 AM EDT Nazia Johns LICSW documented as of this encounter Plan of [...] Assessment Noted Time PHQ-9 Depression Total Score: 6 01/12/20 25 10:30 AM EDT documented as of this encounter Care Teams Nurse Researcher Relationship Specialty Start Date End Date Katelyn Mejia CNP PCP - General Family Medicine 12/29/24 documented as of this encounter
== END 2025-02-13 08:55 | disposition home or self-care (01) ==
LOC: HO.NEURO 08:54
DX: M25.531 Pain in right wrist (principal); M25.532 Pain in left wrist
CPT/HCPCS: 95886; 95913

== ENCOUNTER → 2025-02-13 08:57 | Outpatient (BNV) | payer OTHER, SELFPAY | PROVIDERS: Visit Provider Psychiatry & Neurology Neurology | DX: G56.22 Lesion of ulnar nerve, left upper limb (principal) | CPT/HCPCS: 95886; 95913 ==

== ENCOUNTER 2025-03-01 13:18 | Outpatient (REF) | payer OTHER, SELFPAY ==
--- NOTE | ~2025-03-01 | US_ITS ---
EXAMINATION: US PELVIS TRANSABDOMINAL AND TRANSVAGINAL HISTORY: pelvic pain, hx of ovarian cysts COMPARISON: There are no prior studies available for comparison. TECHNIQUE: Transabdominal and endovaginal real-time 2D ayala-scale ultrasound was performed. FINDINGS: Uterus: The uterus is normal in size, measuring 10.2 x 3.9 x 6 point cm. Myometrium has a normal echotexture. No fibroids are identified. Endometrium: The endometrial stripe measures 10 mm in thickness. There is a small amount of fluid in the cervical canal. Cervical nabothian cysts are noted. Right ovary: The right ovary measures 4.0 x 2.4 x 3.3 cm. The right ovary is normal in size and echotexture. There is a 2.0 x 1.8 x 2.3 cm septated cyst. Left ovary: The left ovary measures 4.7 x 2.0 x 1.8 cm. Inseparable from the left ovary is a 7.5 x 3.7 x 6.0 cm echogenic mass suggestive of a dermoid. Pelvic fluid: none. US/US pelvic and transvaginal IMPRESSION: 1. 7.5 x 3.7 x 6.0 cm echogenic left adnexal mass, suggestive of a dermoid. MRI of the pelvis is recommended for confirmation. 2. 2.0 x 1.8 x 2.3 cm septated right ovarian cyst. Electronically signed by: Willy Benavides MD 03/01/2025 02:27 PM EDT
--- OUTSIDE RECORDS SUMMARY | 2025-03-01 16:17 | XMS_ITS | Clinical Summary ---
Author Organization [facility] ity Address [address] [place] [address] Care Team Providers Care Odd Ticket Clerk Name Role Phone Unavailable Primary Care Provider [...]
== END 2025-03-01 13:19 | disposition home or self-care (01) ==
LOC: HO.US 13:18
DX: R10.20 Pelvic and perineal pain unspecified side (principal); Z87.42 Personal history of other diseases of the female genital tract
CPT/HCPCS: 76830; 76856

== ENCOUNTER → 2025-03-01 13:23 | Outpatient (BNV) | payer OTHER, SELFPAY | PROVIDERS: Visit Provider Radiology Diagnostic Radiology | DX: N83.292 Other ovarian cyst, left side (principal); N83.291 Other ovarian cyst, right side | CPT/HCPCS: 76830; 76856 ==